=== PATIENT | male | born 1965 | race Caucasian/White ===

== ENCOUNTER 2023-07-09 10:30 | Day surgery (SDC) | payer BC ==
[2023-07-08 10:35] LABS: Absolute Lymphocytes (CBC) 3.5 K/uL (0.7-4.9); Hematocrit 46.1 % (39.6-49.0); Lymphocytes % 40.3 % (15.3-44.8); MCV 94.4 fL (80-100); MPV 8.6 fL (7.6-11.3); Platelets 262 thou/uL (152-406); RBC Red Blood Cell Count 4.88 M/uL (4.33-5.43)
--- NOTE | 2023-07-08 10:39 | RAD REPORT ---
EXAM DESCRIPTION: RAD - Chest Pa And Lat (2 Views) - 07/08/2023 10:23 am CLINICAL HISTORY: pre procedure, hypertension COMPARISON: No comparisons FINDINGS: Lines: Pacemaker. Lungs: No evidence of edema or pneumonia. Pleural: No significant pleural effusions or pneumothorax. Cardiac: The heart size is within normal limits. Mediastinum: Within normal limits. Bones: No acute fractures. Other: None IMPRESSION: No acute cardiopulmonary disease.
[2023-07-08 10:40] LABS: Protime INR 1.01
[2023-07-08 11:12] LABS: Potassium 4.7 mEq/L (3.5-5.1)
[2023-07-09] MEDS ORDERED: NA CHLORIDE 0.9% 500 ML ONE (11:08)
--- NOTE | 2023-07-09 12:55 | EKG ---
Test Date: 2023-07-09 Test Time: 11:02:06 Plaster Mold Maker: ELSA MEASUREMENT RESULTS: Intervals: Rate: 70 [place]: QRSD: 194 QT: 470 QTc: 507 [place]: P: [place]: QRS: -68 T: 95 INTERPRETIVE STATEMENTS: Electronic ventricular pacemaker No previous ECG available for comparison Electronically Signed On 07-09-23 12:55:12 CDT by Fletcher Lock
[2023-07-09] MEDS ORDERED: HEPA 1000U/500MLS 1,000 UNIT/500 ML BAG IV ONE (13:15)
[2023-07-09] MEDS ORDERED: FENTANYL CITR 100 MCG/2 ML ONE (13:15)
[2023-07-09] MEDS ORDERED: MIDAZOLAM HCL 2 MG/2 ML INJ ONE (13:16)
[2023-07-09] MEDS ORDERED: HEPARIN 5000 UNIT/ML 1 ML VIAL ONE (13:16)
[2023-07-09] MEDS ORDERED: VERAPAMIL HCL 10 MG/4 ML VIAL IV ONE (13:16)
[2023-07-09] MEDS ORDERED: CLOPIDOGREL 75 MG TABLET ONE (13:16)
[2023-07-09] MEDS ORDERED: TICAGRELOR 90 MG TABLET PO ONE (13:16)
[2023-07-09] MEDS ORDERED: HEPARIN 10,000 UNIT/10 ML VIAL IV ONE (13:16)
[2023-07-09] MEDS ORDERED: ATROPINE SULF 1 MG/10 ML SYR IV ONE (13:17)
[2023-07-09] MEDS ORDERED: ASPIRIN 325 MG TAB ONE (14:14)
[2023-07-09] MEDS ORDERED: FAMOTIDINE 20 MG TAB PO ONE (14:30)
[2023-07-09 15:59] VITALS: O2SAT 99
[2023-07-09 17:38] VITALS: BP 127/68; TEMP 97.5
--- NOTE | 2023-07-09 20:09 | OP ---
Date of Procedure: 07/09/2023 Surgeon: JULIA MATTHEWS Procedures Performed: 1.Selective coronary angiogram. 2.Left heart catheterization. 3.Percutaneous coronary intervention of severe mid left circumflex stenosis, used 4.0 x 12 mm Synerg y drug-eluting stent. 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 Indication: Unstable angina with abnormal stress test. Access: Right femoral artery 6-Nepalese closed with 6-Nepalese Angio-Seal. Complications: None. Bleeding: Less than 20 mL. Description Of Procedure: After risks, benefits, alternatives were explained, patient agreed to proc eed and signed informal consent. Patient was brought into cardiac catheterization laboratory, preppe d and draped in usual sterile fashion. Then, I accessed right femoral artery using micropuncture kit , ultrasound guidance and fluoroscopy and placed 6-Nepalese [place] sheath and took 6-Nepalese JL3.5 cat heter into the aortic root, engaged the left main, took standard views and then I exchanged for a 6-F rench JR4 catheter, engaged the RCA, took standard views and the catheter was pushed over the wire in to the LV, measured the LVEDP and pullback did not record any gradient and then I gave systemic hepar in to assure ACT level above 250. Patient is already on aspirin and Plavix, so I took EBU 3.5 guide 6-Nepalese over the J-wire into the aortic root, engaged the left main, took a Runthrough wire into the left main and then left circumflex passing the area of stenosis. Using a 3.5 balloon to high pressu re, the lesion was expanded. It expanded very well. Then, I placed 4.0 x 12 mm Synergy drug-eluting stent across the area of stenosis with excellent results. Final angiogram after removal of the wire was satisfactory and then I removed the guide and the sheath. Before the closure, the guide was rem sal and then I exchanged for 6-Nepalese JR4 guide and engaged the RCA and took Runthrough into the RCA to try to pass the area of stenosis distally, however, could not pass it, so I then removed the wire and the guide and then I removed the sheath and placed a 6-Nepalese Angio-Seal for closure with good h emostasis. Findings: 1.Left main; proximal 20% and then it is normal, it is very large. 2.LAD; large vessel with proximal segment being normal. In the mid segment, there is a long 60% ximena nosis. Diagonal branches appears normal. The rest of the LAD appears normal. 3.Left circumflex; large vessel with mid 90% stenosis, status post successful PCI as above. In mid to distal, there is 20% stenosis and there are good collaterals coming from the LAD and septal branch es into the PDA filling the RCA back. 4.RCA; large vessel with mid 80% stenosis and then distal BOTTLING MACHINE OPERATOR with collaterals from the right. 5.LVEDP is 12 mmHg, slightly elevated. Conclusion: 1.Severe mid left circumflex stenosis, status post successful PCI as above. 2.There is a totally occluded distal RCA with good collaterals from the LAD. 3.Moderate mid LAD stenosis. Plan: Aspirin, statin, and Plavix, and follow up with me in the office in 1 week. We will plan for running stress test in 3 months and to evaluate the need to intervene on the mid LAD stenosis. SR/MODL Voice ID: [id number] Report ID: [id number]
== END 2023-07-09 17:38 | disposition home or self-care (01) ==
LOC: CCL 10:30
PROVIDERS: ATTEND Internal Medicine
DX: I25.110 Atherosclerotic heart disease of native coronary artery with unstable angina pectoris (principal); I25.82 Chronic total occlusion of coronary artery; I48.0 Paroxysmal atrial fibrillation; I44.1 Atrioventricular block, second degree; I10 Essential (primary) hypertension; E78.5 Hyperlipidemia, unspecified; Z87.891 Personal history of nicotine dependence; Z88.8 Allergy status to other drugs, medicaments and biological substances; Z82.49 Family history of ischemic heart disease and other diseases of the circulatory system
CPT/HCPCS: 36415; 71046; 76937; 80048; 85025; 85347; 85610; 85730; 92928; 93005; 93458; C1725; C1760; C1893; G0269; J0461; J1644; J2250; J3010; J7040; Q9967